=== PATIENT | female | born 1965 ===

== ENCOUNTER → 2019-10-14 | Outpatient (CLI) | payer MEDICARE | LOC: RAD 07:54 | DX: K74.60 Unspecified cirrhosis of liver (principal) | CPT/HCPCS: 19804; C1729 ==

== ENCOUNTER → 2019-11-11 | Outpatient (CLI) | payer MEDICARE ==
[~2019-11-11] VITALS: Ht 180.3 cm; Wt 68.2 kg
[~2019-11-11] MED LIST: ALDACTONE100 M1 PO; FLUTICASONE-SA1 EAC3 IH; INCRUSE EL62.5 MCG/A IH; K-TAB20 MEQ PO; LASIX80 M1 PO; PHENERGAN 25 TA25 MG PO; PRILOSEC OTC20 MG PO; PROAIR HFA0.09 MG/AC IH; ROPINIROLE HYDRO2 MG PO; SYNTHROID0.075 MG PO; VOLTAREN ARTHRI20 GM TP; ZYLOPRIM100 MG PO
[2019-11-11 08:26] VITALS: BP 114/88
[2019-11-11 09:00] VITALS: BP 93/75
[2019-11-11 09:15] VITALS: BP 113/73
[2019-11-11 09:30] VITALS: BP 106/72
[2019-11-11 10:38] VITALS: BP 117/72
== END ==
LOC: RAD 07:04
DX: R18.8 Other ascites (principal)
CPT/HCPCS: P9047

== ENCOUNTER → 2019-12-05 | Outpatient (CLI) | payer MEDICARE ==
[2019-12-05] VITALS (7 sets, daily range): BP systolic 102–110; BP diastolic 62–79
[~2019-12-05] VITALS: Ht 180.3 cm; Wt 68.2 kg
== END ==
LOC: RAD 13:00
DX: K74.60 Unspecified cirrhosis of liver (principal)
CPT/HCPCS: P9047

== ENCOUNTER → 2020-03-02 | Outpatient (CLI) | payer MEDICARE ==
[~2020-03-02] VITALS: Ht 180.3 cm; Wt 65.9 kg
[2020-03-02 10:16] VITALS: BP 102/67
[2020-03-02 11:57] VITALS: BP 93/62
== END ==
LOC: AMSURD 07:43 → RAD 07:43
DX: K74.60 Unspecified cirrhosis of liver (principal)
CPT/HCPCS: P9047

== ENCOUNTER → 2020-03-23 | Outpatient (CLI) | payer MEDICARE ==
[~2020-03-23] VITALS: Ht 180.3 cm; Wt 65.9 kg
[2020-03-23 09:30] VITALS: BP 92/56
[2020-03-23 10:36] VITALS: BP 89/53
== END ==
LOC: RAD 03-19 12:30 → AMSURD 07:26 → RAD 07:30
DX: K74.60 Unspecified cirrhosis of liver (principal)
CPT/HCPCS: P9047

== ENCOUNTER → 2020-04-06 | Outpatient (CLI) | payer MEDICARE ==
[~2020-04-06] VITALS: Ht 180.3 cm; Wt 65.9 kg
[2020-04-06 09:38] VITALS: BP 106/65
[2020-04-06 11:16] LABS: POTASSIUM 3.9 mmol/L (3.5-5.1)
[2020-04-06 11:17] LABS: CALCIUM 8.2 mg/dL (8.3-10.5)
[2020-04-06 12:55] VITALS: BP 105/67
== END ==
LOC: LAB 08:00 → AMSURD 08:00 → RAD 08:00
DX: K74.60 Unspecified cirrhosis of liver (principal)
CPT/HCPCS: P9047

== ENCOUNTER → 2020-04-27 | Outpatient (CLI) | payer MEDICARE ==
[~2020-04-27] MED LIST changes: +LACTULOSE SYRUP1 ML
[2020-04-27 09:30] VITALS: BP 129/74
[2020-04-27 11:23] VITALS: BP 109/67
== END ==
LOC: AMSURD 06:59
DX: K70.31 Alcoholic cirrhosis of liver with ascites (principal)
CPT/HCPCS: C1729; P9047

== ENCOUNTER → 2020-05-11 | Outpatient (CLI) | payer MEDICARE ==
[2020-04-27 11:23] VITALS: BP 109/67
== END ==
LOC: RAD 07:12
DX: K70.31 Alcoholic cirrhosis of liver with ascites (principal)
CPT/HCPCS: 19804; C1729

== ENCOUNTER → 2020-05-11 | Outpatient (CLI) | payer MEDICARE ==
[2020-05-11 09:36] VITALS: BP 100/63
[2020-05-11 11:20] VITALS: BP 96/60
== END ==
LOC: AMSURD 07:19
DX: K70.31 Alcoholic cirrhosis of liver with ascites (principal)
CPT/HCPCS: P9047

== ENCOUNTER → 2020-05-28 | Outpatient (CLI) | payer MEDICARE ==
[2020-05-28 15:54] VITALS: BP 90/56
[2020-05-28 17:27] VITALS: BP 97/59
== END ==
LOC: RAD 12:00 → AMSURD 13:55 → RAD 13:55
DX: K70.31 Alcoholic cirrhosis of liver with ascites (principal)
CPT/HCPCS: C1729; P9047

== ENCOUNTER → 2020-06-15 | Outpatient (CLI) | payer MEDICARE ==
[2020-06-15 08:53] VITALS: BP 97/64
[2020-06-15 10:21] VITALS: BP 87/55
[2020-06-15 10:34] VITALS: BP 93/62
== END ==
LOC: AMSURD 06-11 14:30
DX: K70.31 Alcoholic cirrhosis of liver with ascites (principal)
CPT/HCPCS: C1729; P9047

== ENCOUNTER → 2020-06-25 | Outpatient (CLI) | payer MEDICARE ==
[2020-06-25 16:15] VITALS: BP 132/82
[2020-06-25 17:56] VITALS: BP 110/65
== END ==
LOC: AMSURD 13:09
DX: R18.8 Other ascites (principal)
CPT/HCPCS: C1729; P9047

== ENCOUNTER → 2020-06-29 | Outpatient (CLI) | payer MEDICARE ==
[2020-06-29 09:00] VITALS: BP 102/68
[2020-06-29 09:30] VITALS: BP 93/55
[2020-06-29 10:00] VITALS: BP 91/51
[2020-06-29 10:34] VITALS: BP 83/52
== END ==
LOC: RAD 07:07
DX: K72.90 Hepatic failure, unspecified without coma (principal); K74.60 Unspecified cirrhosis of liver
CPT/HCPCS: C1729; P9047

== ENCOUNTER → 2020-07-16 | Outpatient (CLI) | payer MEDICARE ==
[2020-07-16 16:20] VITALS: BP 110/68
[2020-07-16 17:22] VITALS: BP 108/66
== END ==
LOC: RAD 07-13 07:00
DX: R18.8 Other ascites (principal); R06.00 Dyspnea, unspecified
CPT/HCPCS: C1729; P9047

== ENCOUNTER 2020-07-31 19:30 | Emergency (ER) | payer MEDICARE ==
[~2020-07-31 19:30] MED LIST changes: -LACTULOSE SYRUP1 ML
[2020-07-31 21:46] LABS: BASO # 0.01 (0.02-0.10); EOS # 0.04 (0.04-0.40); EOS % 0.7 % (1.0-5.0); HEMATOCRIT 39.9 % (37.0-47.0); HEMOGLOBIN 13.4 g/dL (12.5-16.0); LYMPH# 1.46 (1.50-4.00); MEAN CELL VOLUME 89 fl (78-100); MEAN CORPUSCULAR HEMOGLOBIN 30 pg (27-31); MEAN CORPUSCULAR HGB CONC 34 g/dL (33-37); MEAN PLATELET VOLUME 8.6 fl (7.4-10.4); MONO # 0.32 (0.20-0.80); NEU # 3.81 (1.40-6.50); PLATELET COUNT 207 K/mm3 (130-400); RED BLOOD COUNT 4.49 M/mm3 (4.10-5.30); RED CELL DISTRIBUTION WIDTH 15.9 % (11.5-14.5); WHITE BLOOD COUNT 5.7 K/mm3 (4.8-10.8)
[2020-07-31 21:54] LABS: ALBUMIN 2.7 g/dL (3.5-5.0)
[2020-07-31 21:56] LABS: CALCIUM 8.2 mg/dL (8.3-10.5)
[2020-07-31 21:57] LABS: TOTAL PROTEIN 6.6 g/dL (6.4-8.3)
[2020-07-31 21:59] LABS: TOTAL BILIRUBIN 0.5 mg/dL (0.2-1.2)
[2020-07-31 22:09] LABS: POTASSIUM 2.8 mmol/L (3.5-5.1)
[2020-07-31 23:26] VITALS: BP 137/88
[2020-12-07] MEDS ORDERED: LACTULOSE SYRUP1 ML (09:19)
== END 2020-07-31 23:26 | disposition short-term general hospital (02) ==
LOC: ED 19:30
PROVIDERS: Family Medicine
DX: S72.001A Fracture of unspecified part of neck of right femur, initial encounter for closed fracture (principal); K70.31 Alcoholic cirrhosis of liver with ascites; E03.9 Hypothyroidism, unspecified; M10.9 Gout, unspecified; Z79.890 Hormone replacement therapy; Z20.822 Contact with and (suspected) exposure to COVID-19; W01.0XXA Fall on same level from slipping, tripping and stumbling without subsequent striking against object, initial encounter; Y92.009 Unspecified place in unspecified non-institutional (private) residence as the place of occurrence of the external cause
CPT/HCPCS: J3010

== ENCOUNTER → 2020-08-17 | Outpatient (CLI) | payer MEDICARE ==
[~2020-08-17] MED LIST changes: +LACTULOSE SYRUP1 ML
[2020-08-17 10:12] VITALS: BP 117/64
[2020-08-17 10:47] VITALS: BP 95/55
[2020-08-17 11:21] VITALS: BP 86/65
== END ==
LOC: RAD 07:42 → AMSURD 07:42
DX: K70.31 Alcoholic cirrhosis of liver with ascites (principal); K72.90 Hepatic failure, unspecified without coma
CPT/HCPCS: C1729; P9047

== ENCOUNTER → 2020-08-31 | Outpatient (CLI) | payer MEDICARE ==
[2020-08-31 09:57] VITALS: BP 92/60
[2020-08-31 10:30] VITALS: BP 97/59
[2020-08-31 11:00] VITALS: BP 107/59
[2020-08-31 11:55] VITALS: BP 86/66
== END ==
LOC: AMSURD 07:37 → RAD 07:37
DX: K74.60 Unspecified cirrhosis of liver (principal); K72.90 Hepatic failure, unspecified without coma
CPT/HCPCS: C1729; P9047

== ENCOUNTER → 2020-09-07 | Outpatient (CLI) | payer MEDICARE ==
[2020-09-07 10:06] VITALS: BP 113/80
[2020-09-07 11:56] VITALS: BP 104/56
== END ==
LOC: RAD 07:36
DX: K74.60 Unspecified cirrhosis of liver (principal); K72.90 Hepatic failure, unspecified without coma
CPT/HCPCS: C1729; P9047

== ENCOUNTER → 2020-09-17 | Outpatient (CLI) | payer MEDICARE ==
[2020-09-17 17:30] VITALS: BP 97/41
[2020-09-17 19:05] VITALS: BP 96/48
== END ==
LOC: RAD 14:30
DX: K74.60 Unspecified cirrhosis of liver (principal); K72.90 Hepatic failure, unspecified without coma
CPT/HCPCS: P9047

== ENCOUNTER → 2020-09-21 | Outpatient (CLI) | payer MEDICARE ==
[~2020-09-21] VITALS: Ht 177.8 cm; Wt 60.0 kg
[2020-09-21 10:42] VITALS: BP 93/63
[2020-09-21 15:00] VITALS: BP 87/47
== END ==
LOC: RAD 08:10
DX: K74.60 Unspecified cirrhosis of liver (principal); K72.90 Hepatic failure, unspecified without coma
CPT/HCPCS: C1729; P9047

== ENCOUNTER → 2020-09-28 | Outpatient (CLI) | payer MEDICARE ==
[~2020-09-28] VITALS: Ht 177.8 cm; Wt 60.0 kg
[2020-09-28 11:00] VITALS: BP 98/60
[2020-09-28 12:42] VITALS: BP 104/54
== END ==
LOC: RAD 08:03
DX: K72.90 Hepatic failure, unspecified without coma (principal); K74.60 Unspecified cirrhosis of liver
CPT/HCPCS: C1729; P9047

== ENCOUNTER → 2020-10-05 | Outpatient (CLI) | payer MEDICARE ==
[~2020-10-05] VITALS: Ht 177.8 cm; Wt 60.0 kg
[2020-10-05 11:10] VITALS: BP 101/61
[2020-10-05 12:00] VITALS: BP 98/58
[2020-10-05 12:30] VITALS: BP 103/58
== END ==
LOC: RAD 07:30 → AMSURD 07:30
DX: K74.60 Unspecified cirrhosis of liver (principal)
CPT/HCPCS: C1729; P9047

== ENCOUNTER → 2020-11-02 | Outpatient (CLI) | payer MEDICARE ==
[~2020-11-02] VITALS: Ht 177.8 cm; Wt 60.0 kg
[2020-11-02 12:40] VITALS: BP 96/60
[2020-11-02 13:30] VITALS: BP 109/58
== END ==
LOC: RAD 08:00
DX: K72.90 Hepatic failure, unspecified without coma (principal); K74.60 Unspecified cirrhosis of liver
CPT/HCPCS: C1729; P9047

== ENCOUNTER → 2020-11-12 | Outpatient (CLI) | payer MEDICARE ==
[~2020-11-12] VITALS: Ht 177.8 cm; Wt 60.0 kg
[2020-11-12 15:43] VITALS: BP 108/64
[2020-11-12 18:30] VITALS: BP 109/54
== END ==
LOC: RAD 12:47
DX: R18.8 Other ascites (principal)
CPT/HCPCS: C1729; P9047

== ENCOUNTER → 2020-11-23 | Outpatient (CLI) | payer MEDICARE ==
[~2020-11-23] VITALS: Ht 177.8 cm; Wt 60.0 kg
[2020-11-23 09:26] VITALS: BP 104/58
[2020-11-23 10:54] VITALS: BP 108/71
== END ==
LOC: RAD 07:53
DX: K74.60 Unspecified cirrhosis of liver (principal)
CPT/HCPCS: C1729; P9047

== ENCOUNTER → 2020-11-30 | Outpatient (CLI) | payer MEDICARE ==
[~2020-11-30] VITALS: Ht 177.8 cm; Wt 60.0 kg
[2020-11-30 10:16] VITALS: BP 104/59
[2020-11-30 10:45] VITALS: BP 109/61
== END ==
LOC: RAD 07:00
DX: K72.90 Hepatic failure, unspecified without coma (principal); K74.60 Unspecified cirrhosis of liver
CPT/HCPCS: C1729; P9047

== ENCOUNTER → 2020-12-07 | Outpatient (CLI) | payer MEDICARE ==
[~2020-12-07] VITALS: Ht 177.8 cm; Wt 60.0 kg
[2020-12-07 09:05] VITALS: BP 99/81
[2020-12-07 09:23] VITALS: BP 111/64
== END ==
LOC: AMSURD 07:15 → RAD 07:15
DX: R18.8 Other ascites (principal)
CPT/HCPCS: C1729; P9047

== ENCOUNTER → 2020-12-14 | Outpatient (CLI) | payer MEDICARE ==
[~2020-12-14] VITALS: Ht 177.8 cm; Wt 60.0 kg
[2020-12-14 09:48] VITALS: BP 120/65
== END ==
LOC: RAD 07:30 → AMSURD 07:47
DX: R18.8 Other ascites (principal)
CPT/HCPCS: C1729; P9047

== ENCOUNTER → 2020-12-21 | Outpatient (CLI) | payer MEDICARE ==
[~2020-12-21] VITALS: Ht 177.8 cm; Wt 60.0 kg
[2020-12-21 09:10] VITALS: BP 110/68
[2020-12-21 10:16] VITALS: BP 96/67
== END ==
LOC: RAD 07:00
DX: R18.8 Other ascites (principal)
CPT/HCPCS: C1729; P9047

== ENCOUNTER → 2020-12-28 | Outpatient (CLI) | payer MEDICARE ==
[~2020-12-28] VITALS: Ht 177.8 cm; Wt 60.0 kg
[2020-12-28 09:07] VITALS: BP 114/70
[2020-12-28 09:35] VITALS: BP 99/54
== END ==
LOC: RAD 07:07
DX: R18.8 Other ascites (principal)
CPT/HCPCS: C1729; P9047

== ENCOUNTER → 2020-12-31 | Outpatient (CLI) | payer MEDICARE ==
[~2020-12-31] VITALS: Ht 177.8 cm; Wt 60.0 kg
[2020-12-31 15:39] VITALS: BP 123/78
== END ==
LOC: RAD 13:00
DX: R18.8 Other ascites (principal)
CPT/HCPCS: C1729; P9047

== ENCOUNTER → 2021-01-04 | Outpatient (CLI) | payer MEDICARE ==
[~2021-01-04] VITALS: Ht 177.8 cm; Wt 60.0 kg
[2021-01-04 08:49] VITALS: BP 100/57
[2021-01-04 09:52] VITALS: BP 94/59
[2021-01-04 11:02] VITALS: BP 94/60
== END ==
LOC: RAD 07:11
DX: R18.8 Other ascites (principal)
CPT/HCPCS: C1729; P9047

== ENCOUNTER → 2021-01-11 | Outpatient (CLI) | payer MEDICARE ==
[~2021-01-11] VITALS: Ht 177.8 cm; Wt 60.0 kg
[2021-01-11 09:30] VITALS: BP 93/63
[2021-01-11 10:30] VITALS: BP 93/58
== END ==
LOC: RAD 07:29
DX: R18.8 Other ascites (principal)
CPT/HCPCS: P9047

== ENCOUNTER → 2021-01-18 | Outpatient (CLI) | payer MEDICARE ==
[~2021-01-18] VITALS: Ht 177.8 cm; Wt 60.0 kg
[2021-01-18 09:27] VITALS: BP 100/69
[2021-01-18 10:00] VITALS: BP 102/68
== END ==
LOC: RAD 07:14
DX: K74.60 Unspecified cirrhosis of liver (principal)
CPT/HCPCS: P9047

== ENCOUNTER → 2021-01-25 | Outpatient (CLI) | payer MEDICARE ==
[~2021-01-25] VITALS: Ht 177.8 cm; Wt 60.0 kg
[2021-01-25 08:57] VITALS: BP 107/64
[2021-01-25 10:19] VITALS: BP 91/66
== END ==
LOC: AMSURD 06:46 → RAD 06:46
DX: R18.8 Other ascites (principal)
CPT/HCPCS: C1729; P9047

== ENCOUNTER → 2021-02-08 | Outpatient (CLI) | payer MEDICARE ==
[~2021-02-08] VITALS: Ht 177.8 cm; Wt 60.0 kg
[2021-02-08 09:22] VITALS: BP 109/68
[2021-02-08 11:14] VITALS: BP 103/61
== END ==
LOC: RAD 07:13
DX: R18.8 Other ascites (principal)
CPT/HCPCS: C1729; P9047

== ENCOUNTER → 2021-02-22 | Outpatient (CLI) | payer MEDICARE ==
[~2021-02-22] VITALS: Ht 177.8 cm; Wt 60.0 kg
[2021-02-22 09:10] VITALS: BP 104/55
[2021-02-22 09:55] VITALS: BP 99/58
== END ==
LOC: RAD 02-15 07:08
DX: K72.90 Hepatic failure, unspecified without coma (principal); K74.60 Unspecified cirrhosis of liver
CPT/HCPCS: P9047

== ENCOUNTER → 2021-03-01 | Outpatient (CLI) | payer MEDICARE, MEDICAID ==
[~2021-03-01] VITALS: Ht 177.8 cm; Wt 60.0 kg
[2021-03-01 09:43] VITALS: BP 104/65
[2021-03-01 11:20] VITALS: BP 107/57
== END ==
LOC: RAD 07:02
DX: K74.60 Unspecified cirrhosis of liver (principal); K72.90 Hepatic failure, unspecified without coma
CPT/HCPCS: C1729; P9047

== ENCOUNTER → 2021-03-04 | Outpatient (CLI) | payer MEDICARE, MEDICAID ==
[~2021-03-04] VITALS: Ht 177.8 cm; Wt 60.0 kg
[2021-03-04 14:00] VITALS: BP 113/64
[2021-03-04 16:11] VITALS: BP 128/73
== END ==
LOC: RAD 08:56
DX: R18.8 Other ascites (principal)
CPT/HCPCS: C1729; P9047

== ENCOUNTER 2021-03-11 15:02 | Outpatient (RCR) | payer MEDICARE, MEDICAID ==
[~2021-03-11] VITALS: Ht 177.8 cm; Wt 60.0 kg
[2021-03-11 13:44] VITALS: BP 110/71
[2021-03-11 15:22] VITALS: BP 101/60
[2021-03-15 09:25] VITALS: BP 102/57
[2021-03-15 10:11] VITALS: BP 111/49
== END 2021-03-22 | disposition home or self-care (01) ==
LOC: AMSURD
DX: R18.8 Other ascites (principal)
CPT/HCPCS: P9047

== ENCOUNTER → 2021-03-11 | Outpatient (CLI) | payer MEDICARE, MEDICAID | LOC: RAD 12:19 → EDSTATUS 13:00 | DX: R18.8 Other ascites (principal) ==

== ENCOUNTER → 2021-03-15 | Outpatient (CLI) | payer MEDICARE, MEDICAID | LOC: RAD 07:03 | DX: K72.90 Hepatic failure, unspecified without coma (principal) ==

== ENCOUNTER → 2021-03-22 | Outpatient (CLI) | payer MEDICARE, MEDICAID | LOC: RAD 07:15 | DX: K72.90 Hepatic failure, unspecified without coma (principal); K74.60 Unspecified cirrhosis of liver | CPT/HCPCS: 19804; C1729 ==

== ENCOUNTER → 2021-05-06 | Outpatient (CLI) | payer MEDICARE, MEDICAID ==
[~2021-05-06] VITALS: Ht 177.8 cm; Wt 60.0 kg
[2021-05-06 18:06] VITALS: BP 135/39
== END ==
LOC: RAD 13:00
DX: R18.8 Other ascites (principal); R06.00 Dyspnea, unspecified; R14.0 Abdominal distension (gaseous)
CPT/HCPCS: C1729; P9047

== ENCOUNTER → 2021-05-10 | Outpatient (CLI) | payer MEDICARE, MEDICAID ==
[~2021-05-10] VITALS: Ht 177.8 cm; Wt 60.0 kg
[2021-05-10 09:15] VITALS: BP 131/51
[2021-05-10 11:27] VITALS: BP 115/62
== END ==
LOC: RAD 07:07
DX: R18.8 Other ascites (principal)
CPT/HCPCS: C1729; P9047

== ENCOUNTER → 2021-05-17 | Outpatient (CLI) | payer MEDICARE, MEDICAID ==
[~2021-05-17] VITALS: Ht 177.8 cm; Wt 60.0 kg
[2021-05-17 09:50] VITALS: BP 129/76
[2021-05-17 10:00] VITALS: BP 125/68
[2021-05-17 11:00] VITALS: BP 114/64
== END ==
LOC: RAD 05-14 06:21
DX: K70.31 Alcoholic cirrhosis of liver with ascites (principal)
CPT/HCPCS: C1729; P9047

== ENCOUNTER → 2021-05-24 | Outpatient (CLI) | payer MEDICARE, MEDICAID ==
[~2021-05-24] VITALS: Ht 177.8 cm; Wt 60.0 kg
[~2021-05-24] MED LIST changes: +BUMETANIDE2 M1 PO
[2021-05-24 10:06] VITALS: BP 128/58
[2021-05-24 11:30] VITALS: BP 114/69
== END ==
LOC: RAD 07:13
DX: K70.31 Alcoholic cirrhosis of liver with ascites (principal)
CPT/HCPCS: C1729; P9047

== ENCOUNTER → 2021-05-31 | Outpatient (CLI) | payer MEDICARE, MEDICAID ==
[~2021-05-31] VITALS: Ht 177.8 cm; Wt 60.0 kg
[2021-05-31 09:47] VITALS: BP 123/70
== END ==
LOC: RAD 07:14
DX: R18.8 Other ascites (principal)
CPT/HCPCS: C1729; P9047

== ENCOUNTER → 2021-06-07 | Outpatient (CLI) | payer MEDICARE, MEDICAID ==
[~2021-06-07] VITALS: Ht 177.8 cm; Wt 60.0 kg
[2021-06-07 09:04] VITALS: BP 114/65
[2021-06-07 10:30] VITALS: BP 118/56
== END ==
LOC: RAD 07:00
DX: R18.8 Other ascites (principal)
CPT/HCPCS: C1729; P9047

== ENCOUNTER → 2021-06-14 | Outpatient (CLI) | payer MEDICARE, MEDICAID ==
[~2021-06-14] VITALS: Ht 177.8 cm; Wt 60.0 kg
[2021-06-14 09:31] VITALS: BP 116/66
[2021-06-14 10:39] VITALS: BP 105/63
== END ==
LOC: RAD 07:12
DX: R18.8 Other ascites (principal)
CPT/HCPCS: C1729; P9047

== ENCOUNTER → 2021-06-21 | Outpatient (CLI) | payer MEDICARE, MEDICAID | LOC: RAD 07:18 → AMSURD 07:18 | DX: K70.31 Alcoholic cirrhosis of liver with ascites (principal) | CPT/HCPCS: 19804; C1729 ==

== ENCOUNTER → 2021-07-08 | Outpatient (CLI) | payer MEDICARE, MEDICAID ==
[~2021-07-08] VITALS: Ht 177.8 cm; Wt 60.0 kg
[2021-07-08 13:46] VITALS: BP 115/65
[2021-07-08 13:50] VITALS: BP 119/69
== END ==
LOC: RAD 07-01 13:00
DX: R18.8 Other ascites (principal)
CPT/HCPCS: C1729; P9047

== ENCOUNTER → 2021-07-15 | Outpatient (CLI) | payer MEDICARE, MEDICAID | LOC: RAD 13:47 | DX: R18.8 Other ascites (principal) | CPT/HCPCS: 19804; C1729 ==

== ENCOUNTER → 2021-07-26 | Outpatient (CLI) | payer MEDICARE, MEDICAID | LOC: RAD 07:44 | DX: K70.31 Alcoholic cirrhosis of liver with ascites (principal) | CPT/HCPCS: 19804; C1729 ==

== ENCOUNTER → 2021-08-02 | Outpatient (CLI) | payer MEDICARE, MEDICAID ==
[~2021-08-02] VITALS: Ht 177.8 cm; Wt 60.0 kg
[2021-08-02 10:30] VITALS: BP 119/59
[2021-08-02 12:15] VITALS: BP 120/59
== END ==
LOC: RAD 07:11
DX: K70.31 Alcoholic cirrhosis of liver with ascites (principal)
CPT/HCPCS: C1729; P9047

== ENCOUNTER → 2021-08-09 | Outpatient (CLI) | payer MEDICARE, MEDICAID | LOC: RAD 07:19 | DX: K70.31 Alcoholic cirrhosis of liver with ascites (principal) ==

== ENCOUNTER → 2021-08-16 | Outpatient (CLI) | payer MEDICARE, MEDICAID | LOC: RAD 07:33 | DX: K70.31 Alcoholic cirrhosis of liver with ascites (principal) | CPT/HCPCS: 19804; C1729 ==

== ENCOUNTER → 2021-08-30 | Outpatient (CLI) | payer MEDICARE, MEDICAID ==
[~2021-08-30] VITALS: Ht 177.8 cm; Wt 60.0 kg
[2021-08-30 09:08] VITALS: BP 120/71
[2021-08-30 11:00] VITALS: BP 102/71
== END ==
LOC: RAD 07:24
DX: K70.31 Alcoholic cirrhosis of liver with ascites (principal)
CPT/HCPCS: C1729; P9047

== ENCOUNTER → 2021-09-06 | Outpatient (CLI) | payer MEDICARE, MEDICAID | LOC: RAD 07:20 | DX: K70.31 Alcoholic cirrhosis of liver with ascites (principal) | CPT/HCPCS: 19804; C1729 ==

== ENCOUNTER → 2021-09-13 | Outpatient (CLI) | payer MEDICARE, MEDICAID | LOC: RAD 08:09 | DX: K70.31 Alcoholic cirrhosis of liver with ascites (principal) | CPT/HCPCS: 19804; C1729 ==

== ENCOUNTER 2021-09-19 20:35 | Emergency (ER) | payer MEDICARE, MEDICAID ==
[~2021-09-19] VITALS: Ht 25.4 cm; Wt 60.0 kg
[2021-09-19 23:26] VITALS: BP 129/87
== END 2021-09-19 23:27 | disposition home or self-care (01) ==
LOC: ED 20:35
DX: K70.31 Alcoholic cirrhosis of liver with ascites (principal); K42.9 Umbilical hernia without obstruction or gangrene; Z87.19 Personal history of other diseases of the digestive system; Z87.442 Personal history of urinary calculi; Z90.49 Acquired absence of other specified parts of digestive tract

== ENCOUNTER → 2021-09-20 | Outpatient (CLI) | payer MEDICARE, MEDICAID ==
[~2021-09-20] VITALS: Ht 177.8 cm; Wt 60.0 kg
[2021-09-20 10:16] VITALS: BP 125/69
[2021-09-20 11:42] VITALS: BP 110/69
== END ==
LOC: RAD 08:17
DX: K70.31 Alcoholic cirrhosis of liver with ascites (principal)
CPT/HCPCS: C1729; P9047

== ENCOUNTER → 2021-09-27 | Outpatient (CLI) | payer MEDICARE, MEDICAID ==
[~2021-09-27] VITALS: Ht 177.8 cm; Wt 60.0 kg
[2021-09-27 09:41] VITALS: BP 122/71
[2021-09-27 10:16] VITALS: BP 127/69
== END ==
LOC: RAD 07:14
DX: K70.31 Alcoholic cirrhosis of liver with ascites (principal)
CPT/HCPCS: C1729; P9047

== ENCOUNTER → 2021-10-04 | Outpatient (CLI) | payer MEDICARE, MEDICAID | LOC: RAD 07:16 | DX: K70.31 Alcoholic cirrhosis of liver with ascites (principal) | CPT/HCPCS: 19804; C1729 ==

== ENCOUNTER → 2021-10-11 | Outpatient (CLI) | payer MEDICARE, MEDICAID ==
[~2021-10-11] VITALS: Ht 177.8 cm; Wt 60.0 kg
[2021-10-11 10:52] VITALS: BP 133/74
== END ==
LOC: RAD 07:10
DX: K70.31 Alcoholic cirrhosis of liver with ascites (principal)
CPT/HCPCS: C1729; P9047

== ENCOUNTER → 2021-10-21 | Outpatient (CLI) | payer MEDICARE, MEDICAID ==
[~2021-10-21] VITALS: Ht 177.8 cm; Wt 60.0 kg
[2021-10-21 15:55] VITALS: BP 118/62
== END ==
LOC: RAD 13:10
DX: K70.31 Alcoholic cirrhosis of liver with ascites (principal)
CPT/HCPCS: C1729; P9047

== ENCOUNTER → 2021-11-01 | Outpatient (CLI) | payer MEDICARE, MEDICAID | LOC: RAD 07:38 | DX: R18.8 Other ascites (principal) | CPT/HCPCS: 19804; C1729 ==

== ENCOUNTER → 2021-11-08 | Outpatient (CLI) | payer MEDICARE, MEDICAID | LOC: RAD 08:15 | DX: K70.31 Alcoholic cirrhosis of liver with ascites (principal) | CPT/HCPCS: 19804; C1729 ==

== ENCOUNTER → 2022-01-06 | Outpatient (CLI) | payer MEDICARE, MEDICAID ==
[~2022-01-06] VITALS: Ht 177.8 cm; Wt 60.0 kg
[2022-01-06 15:00] VITALS: BP 114/70
[2022-01-06 16:21] VITALS: BP 113/62
== END ==
LOC: RAD 13:03 → AMSURD 13:03
DX: K70.31 Alcoholic cirrhosis of liver with ascites (principal)
CPT/HCPCS: C1729; P9047

== ENCOUNTER → 2022-03-14 | Outpatient (CLI) | payer MEDICARE, MEDICAID | LOC: RAD 07:06 | DX: K70.31 Alcoholic cirrhosis of liver with ascites (principal) | CPT/HCPCS: 19804; C1729 ==

== ENCOUNTER → 2022-04-04 | Outpatient (CLI) | payer MEDICARE, MEDICAID | LOC: RAD 08:35 | DX: K70.31 Alcoholic cirrhosis of liver with ascites (principal) | CPT/HCPCS: 15985 ==

== ENCOUNTER → 2022-04-14 | Outpatient (CLI) | payer MEDICARE, MEDICAID ==
[~2022-04-14] VITALS: Ht 177.8 cm; Wt 60.0 kg
[2022-04-14 15:13] VITALS: BP 107/66
[2022-04-14 16:10] VITALS: BP 122/70
== END ==
LOC: RAD 08:24 → AMSURD 12:29 → RAD 12:29
DX: K70.31 Alcoholic cirrhosis of liver with ascites (principal)
CPT/HCPCS: C1729; P9047

== ENCOUNTER → 2022-04-21 | Outpatient (CLI) | payer MEDICARE, MEDICAID ==
[~2022-04-21] VITALS: Ht 177.8 cm; Wt 60.0 kg
[2022-04-21 15:01] VITALS: BP 105/63
[2022-04-21 15:43] VITALS: BP 112/57
== END ==
LOC: RAD 12:03
DX: K70.31 Alcoholic cirrhosis of liver with ascites (principal)
CPT/HCPCS: C1729; P9047

== ENCOUNTER → 2022-05-23 | Outpatient (CLI) | payer MEDICARE, MEDICAID ==
[~2022-05-23] VITALS: Ht 177.8 cm; Wt 79.5 kg
[2022-05-23 09:59] VITALS: BP 115/62
== END ==
LOC: AMSURD 06:53 → RAD 06:53
DX: K70.31 Alcoholic cirrhosis of liver with ascites (principal)
CPT/HCPCS: C1729; P9047